=== PATIENT | female | born 1980 | race American Indian/Alaskan Native ===

== ENCOUNTER 2019-05-28 17:07 | Emergency (ER) | payer BC ==
[2019-05-28 17:16] VITALS: BP 174/104
[2019-05-28] MEDS ORDERED: Morphine 10 MG/ML VIAL (1 ml) IV ONE (17:29)
[2019-05-28] MEDS ORDERED: Ondansetron INJ* 2 MG/ML VIAL IV ONE (17:30)
--- NOTE | 2019-05-28 17:37 | UC ---
Abdominal Pain Female HPI - HPI Summary HPI Summary: 39 yo female with epigastric abd pain that started 2-3 days ago nausea pain waxes and wanes but has been constant worse with food severe nausea but no vomiting passing gas radiates through to back has GB had gastric bypass in 2016 no UTI symptoms - History of Current Complaint Chief Complaint: UCAbdominalPain Stated Complaint: ABDOMINAL PAIN Time Seen by Provider: 05/28/19 17:18 Hx Obtained From: Patient Hx Last Menstrual Period: iud Onset/Duration: Gradual Onset, Lasting Days Timing: Constant Severity Initially: Moderate Severity Currently: Severe Pain Intensity: 8 Pain Scale Used: 0-10 Numeric Location: Epigastric Radiates: Yes Radiates to: Back Character: Colicy, Sharp Aggravating Factor(s): Food Alleviating Factor(s): Nothing Associated Signs and Symptoms: Positive: Decreased Appetite, Nausea. Negative: Diaphoresis, Fever, Cough, Chest Pain, Dizzy, Back Pain, Constipation, Blood in Stool, Urinary Symptoms, Vaginal Bleeding, Vaginal Discharge, Vomiting, Diarrhea Female Torso: 1 - pain Allergies/Adverse Reactions: Allergies Allergy/AdvReac Type Severity Reaction Status Date / Time azithromycin Allergy Rash Verified 05/28/19 17:17 Sulfa (Sulfonamide Allergy Rash Verified 05/28/19 17:17 Antibiotics) Home Medications: Home Medications Ascorbic Acid TAB* [Vitamin C TAB*] 500 mg PO DAILY 05/28/19 [History Confirmed 05/28/19] Temazepam CAP* [Restoril CAP*] 25 mg PO BEDTIME PRN 05/28/19 [History Confirmed 05/28/19] PMH/Surg Hx/FS Hx/Imm Hx Previously Healthy: Yes - Surgical History Surgical History: Yes Surgery Procedure, Year, and Place: Gastric bypass, 03/2016. TONSILLECTOMY,. APPENDECTOMY - Family History Known Family History: Positive: Hypertension, Other - celiac disease - Social History Alcohol Use: Occasionally Substance Use Type: None Smoking Status (MU): Never Smoked Tobacco Length of Time of Smoking/Using Tobacco: 10 years Have You Smoked in the Last Year: No When Did the Patient Quit Smoking/Using Tobacco: 1999 Review of Systems All Other Systems Reviewed And Are Negative: Yes Constitutional: Positive: Negative Skin: Positive: Negative Eyes: Positive: Negative ENT: Positive: Negative Respiratory: Positive: Negative Cardiovascular: Positive: Negative Gastrointestinal: Positive: Abdominal Pain, Nausea Genitourinary: Positive: Negative Motor: Positive: Negative Neurovascular: Positive: Negative Musculoskeletal: Positive: Negative Neurological: Positive: Negative Psychological: Positive: Negative Physical Exam Triage Information Reviewed: Yes Appearance: Well-Nourished, Pain Distress Vital Signs: Initial Vital Signs Temp 99.1 F 05/28/19 17:13 Pulse 93 05/28/19 17:13 Resp 18 05/28/19 17:13 BP 174/104 05/28/19 17:13 Pulse Ox 99 05/28/19 17:13 Eyes: Positive: Conjunctiva Clear ENT: Positive: Hearing grossly normal. Negative: Nasal congestion, Nasal drainage, Tonsillar swelling, Tonsillar exudate Neck: Positive: Supple, Nontender, No Lymphadenopathy Respiratory: Positive: Lungs clear, Normal breath sounds, No respiratory distress, No accessory muscle use Cardiovascular: Positive: RRR, No Murmur Abdomen Description: Positive: No Organomegaly, Other: - markedly tender epigastrium and RUQ. Negative: Nontender, CVA Tenderness (R), CVA Tenderness (L ) Bowel Sounds: Positive: Hyperactive Musculoskeletal: Positive: ROM Intact, No Edema Neurological: Positive: Alert Psychological Exam: Normal Skin Exam: Normal Abd Pain Female Course/Dx - Course Course Of Treatment: d/w Dr Raji Crooks To [facility] via EMS - Differential Dx/Diagnosis Provider Diagnosis: Abdominal pain of unknown cause Discharge - Sign-Out/Discharge Documenting (check all that apply): Patient Departure All imaging exams completed and their final reports reviewed: No Studies - Discharge Plan Condition: Fair Disposition: TRANS HIGHER LVL OF CARE FAC Referrals: No Primary Care Phys,NOPCP [Primary Care Provider] - - Billing Disposition and Condition Condition: FAIR Disposition: Trans Higher Lvl of Care Fac
== END 2019-05-28 17:59 | disposition short-term general hospital (02) ==
LOC: UCEAST 17:07
DX: R10.13 Epigastric pain (principal); Z88.2 Allergy status to sulfonamides; Z98.84 Bariatric surgery status
CPT/HCPCS: 96374; 96375; 99213; G0463; J2270; J2405

== ENCOUNTER 2019-05-28 18:20 | Observation (INO) | payer BC ==
[2019-05-28] MEDS ORDERED: NS 0.9% 1000 ML** 1,000 ML IV ONE (18:36)
[2019-05-28 19:16] LABS: Urine Appearance Clear; Urine Bilirubin Negative (Negative); Urine Blood Negative (Negative); Urine Color Yellow; Urine Glucose Negative (Negative); Urine Ketones Negative (Negative); Urine Nitrite Negative (Negative); Urine Protein Negative (Negative); Urine Specific Gravity 1.013 (1.010-1.030); Urine Urobilinogen Negative (Negative)
--- NOTE | 2019-05-28 19:19 | ED ---
Abdominal Pain/Female - HPI Summary HPI Summary: This patient is a 39 year old F brought to ED via EMS from with a chief complaint of epigastric pain since 05/26/19. The pain radiates across the abdomen and into the back. At urgent care, patient received morphine, which helped the pain. Patient is passing gas and had a bowel movement at 1100 today. Patient has a surgical history of appendectomy and gastric bypass (3 years ago) that performed at [facility] in [place]. She has not had complications since. Patient admits to drinking alcohol occasionally but none recently. Patient has a history of celiacs, diverticulitis, and superior mesenteric artery syndrome. The patient rates the pain 6/10 in severity. Symptoms aggravated by palpation, eating. Symptoms alleviated by morphine. Patient reports nauseous, subjective low-grade fever. Patient denies chills, CP. - History of Current Complaint Chief Complaint: EDAbdPain Stated Complaint: "ABDOMINAL PAIN PER EMS COMING FROM [facility] Time Seen by Provider: 05/28/19 18:34 Hx Obtained From: Patient Hx Last Menstrual Period: iud Onset/Duration: Lasting Days - 05/26/19, Still Present Timing: Constant Severity Initially: Moderate Severity Currently: Moderate Pain Intensity: 6 Pain Scale Used: 0-10 Numeric Location: Epigastric Radiates: Yes Radiates to: Back Aggravating Factor(s): Food, Other: - Palpation Alleviating Factor(s): Medications - Morphine Associated Signs and Symptoms: Positive: Negative - Chills, Fever, Nausea. Negative: Chest Pain Allergies/Adverse Reactions: Allergies Allergy/AdvReac Type Severity Reaction Status Date / Time azithromycin Allergy Rash Verified 05/28/19 17:17 Sulfa (Sulfonamide Allergy Rash Verified 05/28/19 17:17 Antibiotics) PMH/Surg Hx/FS Hx/Imm Hx Previously Healthy: No GI History: Reports: Hx Diverticulosis, Other GI Disorders - Celiac's superior mesenteric artery syndrome Sensory History: Denies: Hx Legally Blind, Hx Deafness Opthamlomology History: Denies: Hx Legally Blind EENT History: Denies: Hx Deafness - Surgical History Surgery Procedure, Year, and Place: Gastric bypass, 03/2016. TONSILLECTOMY,. APPENDECTOMY Infectious Disease History: No Infectious Disease History: Denies: Hx Clostridium Difficile, Hx Hepatitis, Hx Human Immunodeficiency Virus (HIV), Hx of Known/Suspected MRSA, Hx Shingles, Hx Tuberculosis, Hx Known/ Suspected VRE, Hx Known/Suspected VRSA, History Other Infectious Disease, Traveled Outside the [place] in Last 30 Days - Family History Known Family History: Positive: Hypertension, Other - celiac disease - Social History Alcohol Use: Occasionally Hx Substance Use: No Substance Use Type: Reports: None Hx Tobacco Use: No Smoking Status (MU): Never Smoked Tobacco Length of Time of Smoking/Using Tobacco: 10 years Have You Smoked in the Last Year: No Review of Systems Positive: Fever. Negative: Chills Negative: Chest Pain Positive: Abdominal Pain - Epigastric, radiates to back, Nausea All Other Systems Reviewed And Are Negative: Yes Physical Exam - Summary Physical Exam Summary: GENERAL: Patient is a well-developed and nourished F who is lying comfortable in the stretcher. Patient is not in any acute respiratory distress. HEAD AND FACE: Normocephalic EYES: PERRLA, EOMI x 2. EARS: Hearing grossly intact. MOUTH: Oropharynx within normal limits. NECK: Supple, trachea is midline, no adenopathy, no JVD, no carotid bruit. CHEST: Symmetric, no tenderness at palpation LUNGS: Clear to auscultation bilaterally. No wheezing or crackles. CVS: Regular rate and rhythm, S1 and S2 present, no murmurs or gallops appreciated. ABDOMEN: tenderness to palpation of epigastric region EXTREMITIES: Full ROM in all major joints, no edema, no cyanosis or clubbing. NEURO: Alert and oriented x 3. No acute neurological deficits. Speech is normal and follows commands. SKIN: Dry and warm Triage Information Reviewed: Yes Vital Signs On Initial Exam: Initial Vitals Temp Pulse Resp BP Pulse Ox 99.1 F 90 20 137/86 95 05/28/19 18:31 05/28/19 18:31 05/28/19 18:31 05/28/19 18:31 05/28/19 18:31 Vital Signs Reviewed: Yes Diagnostics - Vital Signs Vital Signs Temp Pulse Resp BP Pulse Ox 05/28/19 18:33 84 137/86 94 05/28/19 18:32 86 92 05/28/19 18:31 99.1 F 90 20 137/86 95 - Laboratory Result Diagrams: 05/29/19 06:51 05/29/19 06:51 Lab Statement: Any lab studies that have been ordered have been reviewed, and results considered in the medical decision making process. Abdominal Pain Fem Course/Dx - Course Course Of Treatment: This patient is a 39 year old F brought to ED via EMS from with a chief complaint of epigastric pain since 05/26/19. In the ED course, patient received fluids and banana bag. Blood work and UA obtained. Patient will be signed out to Dr. Sukumar Figueroa at shift change at 2200 on 05/28/19 pending imaging results. - Diagnoses Provider Diagnoses: Pancreatitis Discharge - Sign-Out/Discharge Documenting (check all that apply): Sign-Out Patient Signing out patient TO: Sukumar Figueroa Patient Received Moderate/Deep Sedation with Procedure: No - Discharge Plan Condition: Improved Disposition: ADMITTED TO [facility] - Billing Disposition and Condition Condition: IMPROVED Disposition: Admitted to [facility] - Attestation Statements Document Initiated by Benjaminibe: Yes Documenting Scribe: Ruddy Bell Provider For Whom Scribe is Documenting (Include Credential): Sly Nur MD Scribe Attestation: Ruddy Allen, scribed for Sly Nur MD on 05/30/19 at 0813. Scribe Documentation Reviewed: Yes Provider Attestation: The documentation as recorded by the Ruddy rowland accurately reflects the service I personally performed and the decisions made by , Sly Nur MD Status of Scribe Document: Viewed
[2019-05-28 19:27] LABS: ABS Eosinophils 0.2 10^3/ul (0-0.6); ABS Lymphocytes 2.3 10^3/ul (1.0-4.8); ABS Monocytes 0.5 10^3/ul (0-0.8); ABS Neutrophils 4.6 10^3/ul (1.5-7.7); Eosinophil % 2.1 %; Hematocrit 36 % (35-47); Hemoglobin 12.4 g/dL (12.0-16.0); Lymphocyte % 30.5 %; Mean Corpuscular HGB Conc 34 g/dL (31-36); Mean Corpuscular Hemoglobin 31 pg (27-31); Mean Corpuscular Volume 91 fL (80-97); Mean Platelet Volume 9.3 fL (7.4-10.4); Nucleated Red Blood Cells % 0.1; Platelet Count 290 10^3/uL (150-450); Red Blood Count 3.98 10^6 /uL (3.70-4.87); Red Cell Distribution Width 13 % (10-15); White Blood Count 7.6 10^3/uL (3.5-10.8)
[2019-05-28 19:34] LABS: Activated Partial Thrombo Time 36.8 seconds (26.0-38.0); INR 1.03 (0.82-1.09)
[2019-05-28 19:46] LABS: ALT 17 U/L (7-52); AST 16 U/L (13-39); Albumin 4.3 g/dL (3.2-5.2); Albumin/Globulin Ratio 1.7 (1-3); Alkaline Phosphatase 64 U/L (34-104); Amylase 98 U/L (29-103); Anion Gap 6 mmol/L (2-11); BUN/Creatinine Ratio 17.7 (8-20); Blood Urea Nitrogen 14 mg/dL (6-24); C Reactive Protein 67.38 mg/L (<8.01); CO2 Carbon Dioxide 28 mmol/L (22-32); Calcium 9.4 mg/dL (8.6-10.3); Chloride 105 mmol/L (101-111); EGFR African American 98.6 (>60); EGFR Non-African American 81.4 (>60); Globulin 2.6 g/dL (2-4); Glucose 102 mg/dL (70-100); Magnesium 2.4 mg/dL (1.9-2.7); Potassium 4.1 mmol/L (3.5-5.0); Sodium 139 mmol/L (135-145); Total Protein 6.9 g/dL (6.4-8.9)
[2019-05-28] MEDS ORDERED: Thiamine IV 100 MG, Folic Acid IV* 1 MG, Multiple Vitamin IV ADULT* 10 ML in NS 0.9% 10... IV ONE (19:48)
[2019-05-28 19:52] LABS: HCG Pregnancy < 0.60 mIU/mL
[2019-05-28] MEDS ORDERED: Iohexol 300* (CONTRAST) 10 ML SDV IV ONE (20:17)
--- NOTE | 2019-05-28 22:10 | ED ---
Progress - Progress Note Progress Note: Patient was signed out from Dr. Nur to Dr. Figueroa pending CT AP and Gallbladder US for epigastric pain. Abdomen/Pelvis CT: Per radiologist, No CT findings to correlate with patient's symptomatology. ED physician has reviewed this imaging report. Gallbladder US: Per radiologist, No sonographic findings to correlate with patient's symptomatology. ED physician has reviewed this imaging report. Course/Dx - Course Course Of Treatment: Patient was signed out from Dr. Nur to Dr. Figueroa pending CT AP and Gallbladder US for epigastric pain. Abdomen/Pelvis CT: Per radiologist,. No CT findings to correlate with patient's symptomatology. ED physician has reviewed this imaging report. Gallbladder US: Per radiologist,. No sonographic findings to correlate with patient's symptomatology. ED physician has reviewed this imaging report. Patient diagnosed with pancreatitis. We discussed care with Dr. Polk, hospitalist, who recommended patient be admitted. Patient will be admitted. - Diagnoses Provider Diagnoses: Pancreatitis - Provider Notifications Discussed Care Of Patient With: Howard Polk Time Discussed With Above Provider: 23:50 Instructed by Provider To: Admit As Inpatient Discharge - Sign-Out/Discharge Documenting (check all that apply): Patient Departure - admit Patient Received Moderate/Deep Sedation with Procedure: No - Discharge Plan Condition: Stable Disposition: ADMITTED TO [facility] - Attestation Statements Document Initiated by Scribe: Yes Documenting Scribe: Tatyana Castro Provider For Whom Scribe is Documenting (Include Credential): Sukumar Figueroa MD Scribe Attestation: Tatyana Allen, scribed for Sukumar Figueroa MD on 05/28/19 at 2357.
[2019-05-28] MEDS ORDERED: Morphine 4 MG/ML VIAL (1 ml) 4 MG/ML VIAL IV ONE (23:31)
[2019-05-28] MEDS ORDERED: Metoclopramide IV* 5 MG/ML 2 ML VIAL IV SLOW PU ONE (23:31)
--- NOTE | 2019-05-29 00:59 | HP ---
History of Present Illness - History of Present Illness Reason for Visit: Abdominal Pain History of Present Illness: 39yoF with history of gastric bypass, celiac's disease here due to epigastric abdominal pain since Wednesday. Started while she was at work. Didn't remember doing anything different with her diet. Had accompanying nausea but no vomiting with her epigastric pain. Epigastric radiating to the sides, rated at 8-9/10 intensity, dull with sharp spikes. No other diarrhea that is more than usual due to her celiac's. No chest pain, shortness of breath, fever, chills. She denies any alcohol abuse but starting last Wednesday she did drink on a daily basis til Wednesday due to some or another occasion but states she never actually got drunk and limited to 1-2 alcoholic mixed drinks a day. Past Medical History Anxiety Seasonal allergies Diverticulosis Celiac's disease Ovarian cysts Past Surgical History Gastric bypass, 03/2016. Appendectomy 2008 Tonsillectomy Family History Mother 63 alive anxiety/depression/Celiac disease/HTN/DM Father 58 alive anxiety and depression Brother and nephew have Superior mesenteric artery syndrome Social History Alcohol Use: Occasionally last use was wednesday 2 10onz mixed drinks. Denies any drug use. Quit smoking 12 years prior to that had smoked 11 years about 0.5 PPD. 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 Lives with boyfriend and child. Allergies Allergy/AdvReac Type Severity Reaction Status Date / Time azithromycin Allergy Rash Verified 05/28/19 17:17 Sulfa (Sulfonamide Allergy Rash Verified 05/28/19 17:17 Antibiotics) Home Medications Medication Instructions Recorded Confirmed Type Levonorgestrel [Mirena] 1 dose .ROUTE DAILY 11/20/14 05/29/19 History Multivitamins/Minerals TAB* [Thera 1 tab PO BID 05/17/16 05/29/19 History M Plus TAB*] Sertraline* [Zoloft*] 150 mg PO DAILY 05/17/16 05/29/19 History Ascorbic Acid TAB* [Vitamin C 500 mg PO DAILY 05/28/19 05/29/19 History TAB*] hydrOXYzine HCL TAB* [Atarax 25 MG 25 mg PO TID PRN 05/29/19 05/29/19 History TAB*] Review of Systems - Measurements Intake and Output: Intake and Output Last 24 Hours 07/1905/27/19 05/28/19 05/29/19 06:59 06:59 06:59 06:59 Intake Total 1000 Balance 1000 Weight 190 lb Intake: IV Fluids 1000 - Review of Systems Constitutional Symptoms: Negative: Fever Pulmonary: Negative: Cough, Sputum Cardiology: Negative: Chest Pain, Shortness of Breath, Palpitations, Swelling of Ankles Gastroenterology: Positive: Abdominal Pain, Nausea Negative: Constipation, Diarrhea Objective Vital Signs - 8 hr 05/28/19 05/28/19 05/28/19 18:31 18:32 18:33 Temperature 99.1 F Pulse Rate 90 86 84 Respiratory 20 Rate Blood Pressure 137/86 137/86 (mmHg) O2 Sat by Pulse 95 92 94 Oximetry 05/28/19 23:56 Temperature Pulse Rate Respiratory 22 Rate Blood Pressure (mmHg) O2 Sat by Pulse Oximetry Oxygen Devices in Use Now: None Eyes: No Scleral Icterus, PERRLA Ears/Nose/Mouth/Throat: NL Teeth, Lips, Gums, Clear Oropharnyx, Mucous Membranes Moist Neck: NL Appearance and Movements; NL JVP Respiratory: Clear to Auscultation Cardiovascular: NL Sounds; No Murmurs; No JVD, RRR Abdominal: - - Abdomen is soft with epigastric tenderness. Normoactive bowel sounds. Extremities: No Edema Skin: No Rash or Ulcers Neurological: Alert and Oriented x 3, NL Sensation, NL Muscle Strength and Tone Result Diagrams: 05/28/19 19:20 05/28/19 19:20 Additional Lab and Data: Laboratory Last Values WBC 7.6 10^3/uL (3.5-10.8) 05/28/19 19:20 RBC 3.98 10^6 /uL (3.70-4.87) 05/28/19 19:20 Hgb 12.4 g/dL (12.0-16.0) 05/28/19 19:20 Hct 36 % (35-47) 05/28/19 19:20 MCV 91 fL (80-97) 05/28/19 19:20 MCH 31 pg (27-31) 05/28/19 19:20 MCHC 34 g/dL (31-36) 05/28/19 19:20 RDW 13 % (10-15) 05/28/19 19:20 Plt Count 290 10^3/uL (150-450) 05/28/19 19:20 MPV 9.3 fL (7.4-10.4) 05/28/19 19:20 Neut % (Auto) 60.2 % 05/28/19 19:20 Lymph % (Auto) 30.5 % 05/28/19 19:20 Terrell % (Auto) 6.6 % 05/28/19 19:20 Eos % (Auto) 2.1 % 05/28/19 19:20 Baso % (Auto) 0.6 % 05/28/19 19:20 Absolute Neuts (auto) 4.6 10^3/ul (1.5-7.7) 05/28/19 19:20 Absolute Lymphs (auto) 2.3 10^3/ul (1.0-4.8) 05/28/19 19:20 Absolute Monos (auto) 0.5 10^3/ul (0-0.8) 05/28/19 19:20 Absolute Eos (auto) 0.2 10^3/ul (0-0.6) 05/28/19 19:20 Absolute Basos (auto) 0.0 10^3/ul (0-0.2) 05/28/19 19:20 Absolute Nucleated RBC 0.0 10^3/ul 05/28/19 19:20 Nucleated RBC % 0.1 05/28/19 19:20 INR (Anticoag Therapy) 1.03 (0.82-1.09) 05/28/19 19:20 APTT 36.8 seconds (26.0-38.0) 05/28/19 19:20 Sodium 139 mmol/L (135-145) 05/28/19 19:20 Potassium 4.1 mmol/L (3.5-5.0) 05/28/19 19:20 Chloride 105 mmol/L (101-111) 05/28/19 19:20 Carbon Dioxide 28 mmol/L (22-32) 05/28/19 19:20 Anion Gap 6 mmol/L (2-11) 05/28/19 19:20 BUN 14 mg/dL (6-24) 05/28/19 19:20 Creatinine 0.79 mg/dL (0.51-0.95) 05/28/19 19:20 Est GFR ( Amer) 98.6 (>60) 05/28/19 19:20 Est GFR (Non-Af Amer) 81.4 (>60) 05/28/19 19:20 BUN/Creatinine Ratio 17.7 (8-20) 05/28/19 19:20 Glucose 102 mg/dL (70-100) H 05/28/19 19:20 Lactic Acid 0.5 mmol/L (0.5-2.0) 05/28/19 19:20 Calcium 9.4 mg/dL (8.6-10.3) 05/28/19 19:20 Magnesium 2.4 mg/dL (1.9-2.7) 05/28/19 19:20 Total Bilirubin 0.30 mg/dL (0.2-1.0) 05/28/19 19:20 AST 16 U/L (13-39) 05/28/19 19:20 ALT 17 U/L (7-52) 05/28/19 19:20 Alkaline Phosphatase 64 U/L (34-104) 05/28/19 19:20 C-Reactive Protein 67.38 mg/L (<8.01) H 05/28/19 19:20 Total Protein 6.9 g/dL (6.4-8.9) 05/28/19 19:20 Albumin 4.3 g/dL (3.2-5.2) 05/28/19 19:20 Globulin 2.6 g/dL (2-4) 05/28/19 19:20 Albumin/Globulin Ratio 1.7 (1-3) 05/28/19 19:20 Amylase 98 U/L (29-103) 05/28/19 19:20 Lipase 460 U/L (11.0-82.0) H 05/28/19 19:20 Beta HCG, Quant < 0.60 mIU/mL 05/28/19 19:20 Urine Color Yellow 05/28/19 19:01 Urine Appearance Clear 05/28/19 19:01 Urine pH 6.0 (5-9) 05/28/19 19: Ur Specific Garner 1.013 (1.010-1.030) 05/28/19 19:01 Urine Protein Negative (Negative) 05/28/19 19:01 Urine Ketones Negative (Negative) 05/28/19 19: Urine Blood Negative (Negative) 05/28/19 19:01 Urine Nitrate Negative (Negative) 05/28/19 19:01 Urine Bilirubin Negative (Negative) 05/28/19 19:01 Urine Urobilinogen Negative (Negative) 05/28/19 19:01 Ur Leukocyte Esterase Negative (Negative) 05/28/19 19:01 Urine Glucose Negative (Negative) 05/28/19 19:01 Urine Ascorbic Acid * (Negative) A 05/28/19 19:01 Diagnostic Imaging: US GALL BLADDER LIMITED Liver: Visualized liver is normal. Gallbladder: No gallstones, wall thickening, pericholecystic fluid, or sonographic Hernández's sign. Common bile duct: CBD measures 0.4 cm. IMPRESSION: No sonographic findings to correlate with patient's symptomatology. CT Abdomen/Pelvis with contrast IMPRESSION: No CT findings to correlate with patient's symptomatology. Assess/Plan/Problems-Billing Assessment: 39yoF with gastric bypass, celiac disease, anxiety here due to abdominal pain noted to have elevated lipase. The cause of the pancreatitis is still unclear although she did increase her alcohol use recently due to multiple family events occurring. - Patient Problems (1) Acute pancreatitis Current Visit: Yes Status: Acute Code(s): K85.90 - ACUTE PANCREATITIS WITHOUT NECROSIS OR INFECTION, UNSP SNOMED Code(s): 215024878 Comment: Etiology still unclear. NPO. IVF. Analgesics and anti-emetics PRN. Advance diet as tolerated. (2) Celiac disease Current Visit: No Status: Chronic Code(s): K90.0 - CELIAC DISEASE SNOMED Code(s): 818432401 Comment: Stable (3) Gastric bypass status for obesity Current Visit: No Status: Chronic Code(s): Z98.84 - BARIATRIC SURGERY STATUS SNOMED Code(s): 078656795 Comment: Stable (4) Anxiety Current Visit: No Status: Chronic Code(s): F41.9 - ANXIETY DISORDER, UNSPECIFIED SNOMED Code(s): 69021078 Comment: On hydroxaxine PRN. (5) DVT prophylaxis Current Visit: Yes Status: Acute Code(s): Z29.9 - ENCOUNTER FOR PROPHYLACTIC MEASURES, UNSPECIFIED SNOMED Code(s): 099964782 Comment: SCDs
[2019-05-29] MEDS ORDERED: Ondansetron INJ* 2 MG/ML VIAL IV PRN (01:10)
[2019-05-29] MEDS ORDERED: Morphine INJ* 2 MG/ML 1 ML SYRINGE (TWO MG - NEW SYRINGE VERSION) IV PRN (01:10)
[2019-05-29] MEDS ORDERED: hydrOXYzine HCL TAB* 25 MG PO PRN (01:21)
[2019-05-29] MEDS: Lactated Ringers 1000 ML Bag* 1,000 ML IV SCH ×2 (02:41→10:58)
[2019-05-29 07:18] LABS: ABS Eosinophils 0.1 10^3/ul (0-0.6); ABS Monocytes 0.4 10^3/ul (0-0.8); ABS Neutrophils 3.7 10^3/ul (1.5-7.7); Eosinophil % 2.3 %; Hematocrit 32 % (35-47); Lymphocyte % 32.4 %; Mean Corpuscular HGB Conc 34 g/dL (31-36); Mean Corpuscular Hemoglobin 31 pg (27-31); Mean Corpuscular Volume 92 fL (80-97); Mean Platelet Volume 8.9 fL (7.4-10.4); Platelet Count 233 10^3/uL (150-450); Red Blood Count 3.54 10^6 /uL (3.70-4.87); Red Cell Distribution Width 13 % (10-15); White Blood Count 6.3 10^3/uL (3.5-10.8)
[2019-05-29 07:30] LABS: BUN/Creatinine Ratio 13.4 (8-20); Calcium 8.5 mg/dL (8.6-10.3); EGFR African American 94.4 (>60); HDL Cholesterol 34.9 mg/dL; Potassium 4.1 mmol/L (3.5-5.0)
[2019-05-29] MEDS ORDERED: Levonorgestrel (IUD) (NF) 20 MCG/24 HR IUD IU SCH (09:00)
[2019-05-29] MEDS ORDERED: Multivitamins/Minerals TAB PO SCH (09:00)
[2019-05-29] MEDS ORDERED: Ascorbic Acid TAB* 500 MG PO SCH (09:00)
[2019-05-29] MEDS ORDERED: Sertraline* 100 MG TAB PO SCH (09:00)
[2019-05-29] MEDS ORDERED: Acetaminophen TAB* 325 MG PO PRN (10:54)
[2019-05-29] MEDS ORDERED: Acetaminophen TAB* 325 MG ONE (10:56)
[2019-05-29 15:44] VITALS: BP 107/64
--- NOTE | 2019-05-30 01:01 | DS ---
DISCHARGE SUMMARY: DATE OF ADMISSION: 05/28/19 DATE OF DISCHARGE: 05/29/19 PRIMARY DIAGNOSIS: Acute pancreatitis. SECONDARY DIAGNOSES: 1. Celiac disease. 2. Obesity. 3. Anxiety. DISCHARGE MEDICATIONS: 1. Sertraline 150 mg daily. 2. Levonorgestrel 1 tab daily. 3. Hydroxyzine 25 mg up to 3 times a day as needed for anxiety. 4. Vitamin C 500 mg daily. 5. Multivitamin 1 tab daily. HISTORY OF PRESENT ILLNESS: Ms. Mayer is a 39-year-old woman with a history of obesity, status post gastric bypass, celiac disease, who presented due to 3 days of epigastric pain, which started when t he patient was at work. She did not remember doing anything differently with her diet around this ti me. The epigastric pain was associated with nausea, but no vomiting. It radiated to the sides of he r abdomen and around to her back and was rated as an 8-9/10 of intensity, dull with sharp spikes. Sh luiz reports a history of chronic diarrhea from celiac disease given her difficulty sticking with her di et and states that she has not had more diarrhea recently. She denies chest pain, shortness of breat h, fevers, or chills. She denies alcohol abuse, but states that 5 days prior to these symptoms, she did have a drink daily until 3 days prior to symptoms started, but none since 3 days prior to beginni ng of symptoms. She did not have more than 1 to 2 drinks a day during this time. HOSPITAL COURSE: The patient was admitted to the medical service and started on intravenous fluids. Her pain was well controlled after 1 dose of 4 mg morphine and she required no further doses of medi cations for abdominal pain during hospitalization. By next morning, the patient reported slow resolu tion of her pain and was able to tolerate full solid tray. She underwent a gallbladder ultrasound, w hich did not show evidence of stones and she had laboratory tests with triglycerides 281. Her only n ew medication recently was hydroxyzine, which was not known to cause pancreatitis. She had no known etiology of her pancreatitis by time of discharge. On day of discharge, she denied 10-point review o f systems. PHYSICAL EXAM: Well-appearing woman, in no acute distress. Alert and interactive, playing with chil dren at bedside with moist chicken and mashed potatoes eating from bedside tray. HEENT: Moist mucou s membranes. OP clear. Neck: No JVD. Supple. Lungs: Clear to auscultation bilaterally. Heart: Regular rate and rhythm. No murmurs, gallops, or rubs. Abdomen: Soft, nontender, nondistended. No guarding or rebound. Extremities: Warm and well perfused. No evidence of edema. Skin: Warm and d ry. Neuro: A and O x3. No focal motor deficits. PERTINENT STUDIES AND LABS: Lipase 460. CRP 67. LDL 57, HDL 34, triglycerides 281. Amylase 98. Beta hCG negative. UA clear. A gallbladder ultrasound is without sonographic findings to correlate with the patient's symptomatolo gy. Gallbladder without stones or wall thickening or pericholecystic fluid. Abdomen and pelvis CT without CT findings to correlate with the patient's symptoms. Liver is normal. Gallbladder and bile ducts normal. No calcified stones. No ductal dilatation. DISCHARGE PLAN: The patient is to follow up with her primary care physician. She also reports that she has seen a plate sensitizer in the past for EGD for diagnosis of celiac disease and could retur n to him if needed. She is to continue healthy diet, low in unprocessed foods and free of gluten. S he is to have activity as tolerated. No medication changes were made to her home med list. She was extensively educated on return precautions, which include but are not limited to recurrence of abdomi nal pain, nausea, new symptoms or fever. DISPOSITION: To home. CONDITION: Good. TIME SPENT: Approximately 60 minutes was spent on discharge of this patient, more than half of which was spent with care and coordination at bedside for interview and exam. [id number]/[facility] #: [id number]
== END 2019-05-29 15:10 | disposition home or self-care (01) ==
LOC: ED 18:20 → INTOOBSV 05-29 01:10 → MED 05-29 01:10
PROVIDERS: ADMIT Internal Medicine; ATTEND Internal Medicine
DX: K85.90 Acute pancreatitis without necrosis or infection, unspecified (principal); K90.0 Celiac disease; E66.9 Obesity, unspecified; F41.9 Anxiety disorder, unspecified; Z79.899 Other long term (current) drug therapy; Z98.84 Bariatric surgery status; Z90.89 Acquired absence of other organs; Z88.2 Allergy status to sulfonamides; K57.90 Diverticulosis of intestine, part unspecified, without perforation or abscess without bleeding; N83.209 Unspecified ovarian cyst, unspecified side; Z87.09 Personal history of other diseases of the respiratory system; Z72.89 Other problems related to lifestyle
CPT/HCPCS: 36415; 74177; 76705; 80048; 80053; 80061; 81003; 82150; 83605; 83690; 83735; 84702; 85025; 85610; 85730; 86140; 96365; 96366; 96375; 99283; A9270-GY; G0378; J2270; J2765; J3411; Q9967